=== PATIENT | female | born 1945 | race Caucasian/White ===

== ENCOUNTER → 2016-12-11 | Outpatient (CLI) | payer MEDICARE, OTHER | LOC: HEART 5 10:28 | DX: I73.9 Peripheral vascular disease, unspecified (principal) ==

== ENCOUNTER 2021-07-03 15:14 | Emergency (ER) | payer OTHER, MEDICARE ==
[~2021-07-03] VITALS: Ht 152.4 cm; Wt 40.4 kg
[2021-07-03 16:03] LABS: HEMOGLOBIN 12.9 gm/dl (12.3-15.3); RED BLOOD COUNT 4.23 M/UL (4.00-5.10); WHITE BLOOD COUNT 9.1 K/UL (4.5-11.0)
== END 2021-07-03 19:50 | disposition home or self-care (01) ==
LOC: ER1 15:14
PROVIDERS: Student in an Organized Health Care Education/Training Program
DX: M54.5 Low back pain (principal); V49.50XA Passenger injured in collision with unspecified motor vehicles in traffic accident, initial encounter
CPT/HCPCS: 36415; 70450; 71045; 71260; 72125; 72170; 80053; 85025; 86850; 86900; 86901; 96374; 96375; 99284; Q9967